=== PATIENT | male | born 1995 | race Two or more races ===

== ENCOUNTER → 2016-07-06 | Day surgery (SDC) | payer OTHER ==
[~2016-07-06] MED LIST: BUPIVACAINE 0.5% 30 ML SDV ONE; CEFAZOLIN 2 GM/DEXTROSE/100 ML BAG IV ONE; DEXAMETHASONE 4 MG/ML VIAL ONE; DIAZEPAM 10 MG/2 ML SYR ONE; LIDOCAINE 1% 5 ML SDV ONE; LIDOCAINE 2% 5 ML SDV ONE; METOCLOPRAMIDE 10 MG/2 ML VIAL ONE; MIDAZOLAM 2 MG/2 ML VIAL ONE; ONDANSETRON 4 MG/2 ML VIAL ONE; PROPOFOL/EMULSION 500 MG/50 ML BOTTLE IV ONE; ROPIVACAINE 0.2% 1,100 MG in PUMP SET 1 EA NB SCH; ROPIVACAINE HCL 150 MG/30 ML INJ ONE; ceFAZolin 1 GM VIAL ONE; fentaNYL 100 MCG/2 ML INJ ONE; fentaNYL 250 MCG/5 ML INJ ONE
--- NOTE | 2016-07-06 16:18 | GOP ---
[f rep st] OPERATIVE REPORT DATE OF OPERATION: 07/06/2016 SURGEON: Jamison Quintanilla MD MOTOR [employer] MECHANIC: Janet Alba PA-C who was necessary for the completion of the surgery. ANESTHESIA: General plus indwelling popliteal nerve block and saphenous nerve blocks performed by gary hernandez anesthesiologist at my request for postoperative pain management. PREOPERATIVE DIAGNOSIS: 1. Right symptomatic flatfoot deformity. 2. Right gastrocnemius contracture. 3. Right ankle impingement. 4. Osteochondral lesion, right medial talar dome. POSTOPERATIVE DIAGNOSIS: 1. Right symptomatic flatfoot deformity. 2. Right gastrocnemius contracture. 3. Right ankle impingement. 4. Osteochondral lesion, right medial talar dome. 5. 1st ray instability. PROCEDURE PERFORMED: FINDINGS: ESTIMATED BLOOD LOSS: Minimal. INDICATIONS: The patient is a 21-year-old with a history of persistent medial ankle pain and latera l medial hindfoot pain. Clinically and radiographically. He is noted to have a significant flatfoo t deformity with an osteochondral lesion of his medial talar dome. Based on his persistence of symp toms refractory to nonoperative treatment, he is interested in pursuing operative treatment. From a n operative standpoint, comprehensive correction of his flatfoot deformity, as well as arthroscopic evaluation of his ankle and grafting of his osteochondral lesion was recommended. The patient ackno wledged he understood the potential risks of the operation, including but not limited to, bleeding, infection, neurovascular damage, including the loss of the limb or limb function, malunion, nonunion , need for hardware removal, pain or functional limitations despite operative treatment, and anesthe tic risks. He acknowledged he understood the potential risks, planned procedure, and postoperative plan well, and had all questions answered prior to surgery. He gave his consent for the operative p rocedure. DESCRIPTION OF PROCEDURE: The patient was brought to the operating room after IV antibiotics were a dministered. The patient was brought in the operating room after IV antibiotics were administered. Indwelling popliteal block was performed by the anesthesiologist at my request for postoperative pa in management in preop holding. He was placed in the supine position where general anesthetic was a dministered. The tourniquet was placed on the right thigh, bump underneath the right hip and should er, and his right lower extremity was prepped and draped in standard sterile fashion. Attention was initially directed toward the arthroscopic portion of the surgery. The table was elevated and foot drop for gravity distraction. The anterior medial portal was confirmed with needle placement and f luid insufflation. A small incision was made just medial to the tibialis anterior tendon where the needle had been placed with dissection to the capsule with fine tip hemostat. A 2.7 mm arthroscopic sheath was inserted over a blunt trocar. A spinal needle was placed anterolaterally for outflow pu rposes after identifying and taking care to avoid damage to the superficial peroneal nerve. Examina tion of the joint revealed abundant synovitic tissue. The 2.5 mm full-radius shaver was introduced anterior laterally after making a small incision where the spinal needle had been placed and dissect ing through the capsule with a fine-tipped hemostat and a blunt trocar. The hypertrophic synovitic tissue was removed. Examination of the lesion along the medial talar dome revealed partial thicknes s loss of cartilage but the majority of the cartilage being intact. There was no unstable cartilage seen. A very prominent anterior inferior distal tib-fib ligament was identified. Utilizing a bask et forceps and a shaver, this was removed. The arthroscope was then removed. Attention was then directed toward the subchondroplasty. A small incision was made along the latera l aspect of the sinus tarsi over the lateral process of the talus. Sharp dissection was carried miya n dorsal to the peroneal tendons, the lateral subtalar joint. Under fluoroscopic guidance, at the e xtra-articular portion of the lateral process of the talus, the insertion guide for the Terrance subch ondroplasty was inserted just inferior to the osteochondral lesion. Calcium phosphate was injected into place under fluoroscopic guidance gaining adequate fill. This was allowed to harden for 8 hima keely, and the trocar was removed. Attention was then directed towards the gastroc recession. A longitudinal incision was made along t he posterior medial aspect of the lower leg at the mid substance of the gastroc. Skin and subcutane ous tissue were sharply incised. Sharp dissection was carried through the superficial posterior com partment of the fascia. The gastroc soleus interval was bluntly identified. Utilizing a speculum f or retraction, the anterior fascia of the gastroc was transversely released, gaining favorable dorsi flexion. The superficial posterior compartment fascia and subcutaneous tissue was closed with 3-0 V icryl suture in interrupted fashion, and the skin was closed with 4-0 nylon interrupted sutures. Calcaneal osteotomy was then performed. The tuberosity osteotomy was initially done. An oblique in cision was made along the lateral aspect of the calcaneal tuberosity. Sharp dissection was carried down to the periosteal level. After protecting the dorsal and plantar aspect of the tuberosity with Hohmann retractors. A saw was utilized to create an osteotomy in a lateral to medial direction. T he osteotomy was gapped open with an osteotome and bone pool hall inspector. The proximal segment was translat ed approximately 1 cm medially and secured with two 4.0 mm cortical screws placed through stab incis ions in the heel in lag fashion. The distal osteotomy was then performed. A horizontal incision wa s made along the distal aspect of the calcaneus. Skin and subcutaneous tissue were sharply incised. The extensor digitorum brevis was elevated. After protecting the distal calcaneus with Hohmann re tractors. An osteotomy was made paralleling the calcaneal cuboid joint approximately 12 mm proximal to the calcaneocuboid joint, leaving the medial cortex intact. The osteotomy was gapped open with a bone pool hall inspector. A 10 mm Mancia cortical cancellous allograft wedge was inserted. Prior to doing th is, the central aspect of the wedge was filled with local bone graft. The lateral wall of the calca bernard tuberosity was utilized for bone graft purposes. A rongeur was utilized to harvest bone. The bone was impacted into place in the central aspect of the wedge in hopes of promoting more rapid hea ling. Two 2.7 mm screws were placed in the distal to proximal direction across the distal osteotomy . An additional 4.0 mm cortical screw was placed through a stab incision along the posterior aspect of the heel across both osteotomy sites. Fluoroscopic views confirmed favorable osteotomy and hard isidro positions. The subcutaneous tissue was closed with 3-0 Vicryl suture in interrupted fashion. The skin was closed with 4-0 nylon interrupted vertical mattress sutures. Attention was then directed toward the 1st TMT arthrodesis. Examination revealed elevated 1st ray. A longitudinal incision was made along the dorsal aspect of the 1st TMT joint. Skin and subcutaneo us tissue were sharply incised. Sharp dissection was carried adjacent to the EHL tendon. The capsu le was opened transversely utilizing a chisel and rongeur as all articular surface was denuded. In preparation for arthrodesis, subchondral bone was drilled multiple times with a 2.0 mm drill bit and further roughened with a chisel. The 4 mm bur was utilized to create troughs on the dorsal aspect of the 1st metatarsal and medial cuneiform, for screw placement. The 4.0 mm cortical screws were pl aced in lag fashion from the dorsal aspect of the first metatarsal, and the plantar aspect of the me dial cuneiform and dorsal aspect of the medial cuneiform and the plantar aspect of the 1st metatarsa l. Fluoroscopic views confirmed favorable arthrodesis and hardware positions. A bur was then utili zed to create a trough on the dorsal aspect of the joint. Bone graft harvested from drill bit reami ngs was impacted into place as a "stress strain relieving bone graft." Deep tissue was closed with 2-0 Vicryl suture in interrupted fashion. Subcutaneous tissue was closed with 3-0 Vicryl suture in interrupted fashion. The skin was closed with skin jus. The wounds were dressed with sterile A daptic, 4 x 4, Webril, and the leg was placed in a below-knee splint. The patient tolerated the pro cedure well and was taken to the recovery room, extubated, in stable condition postoperatively. All sponge, needle, and instrument counts were reported as being correct. OPERATIONS: 1. Right ankle arthroscopic evaluation and extensive debridement. 2. Right retrograde bone grafting of medial talar dome, subchondral lesion (subchondroplasty). 3. Right calcaneal tuberosity osteotomy. 4. Right calcaneal lateral column lengthening osteotomy. 5. Right gastrocnemius recession. 6. Right 1st tarsal metatarsal arthrodesis. 7. Intraoperative use fluoroscopy. 8. Local bone graft. DRAINS: None. COMPLICATIONS: None. PLAN: The patient will be discharged home nonweightbearing. /[id number]/MODL
== END | disposition home or self-care (01) ==
LOC: FSGY 10:34
PROVIDERS: ATTEND Orthopaedic Surgery Foot and Ankle Surgery
PROC: 0QUL07Z Supplement Right Tarsal with Autologous Tissue Substitute, Open Approach (ICD-10-PCS; principal; 2016-07-06 12:30)
PROC: 0SGK07Z Fusion of Right Tarsometatarsal Joint with Autologous Tissue Substitute, Open Approach (ICD-10-PCS; principal; 2016-07-06 12:30)
PROC: 0SBF4ZZ Excision of Right Ankle Joint, Percutaneous Endoscopic Approach (ICD-10-PCS; principal; 2016-07-06 12:30)
PROC: 0QBL0ZZ Excision of Right Tarsal, Open Approach (ICD-10-PCS; principal; 2016-07-06 12:30)
PROC: 0LSN0ZZ Reposition Right Lower Leg Tendon, Open Approach (ICD-10-PCS; principal; 2016-07-06 12:30)
PROC: 0Q8L0ZZ Division of Right Tarsal, Open Approach (ICD-10-PCS; principal; 2016-07-06 12:30)
DX: Q66.51 Congenital pes planus, right foot (principal); M62.461 Contracture of muscle, right lower leg; M76.892 Other specified enthesopathies of left lower limb, excluding foot; M85.871 Other specified disorders of bone density and structure, right ankle and foot; M25.374 Other instability, right foot
CPT/HCPCS: C1713; C1762; J0690; J1100; J2250; J2405; J2704; J2765; J2795; J3010